=== PATIENT | female | born 1940 | race Caucasian/White ===

== ENCOUNTER → 2020-09-01 15:28 | Outpatient (CLI) | payer MEDICARE, MEDICAID, SELFPAY | PROVIDERS: Visit Provider Nurse Practitioner Family | DX: R00.0 Tachycardia, unspecified (principal); R35.0 Frequency of micturition | CPT/HCPCS: 87086; 87088; 87186 ==

== ENCOUNTER → 2020-09-16 14:53 | Outpatient (CLI) | payer MEDICARE, MEDICAID, SELFPAY ==
--- NOTE | 2020-09-16 14:59 | CA_ITS ---
APPROVED REPORT EXAM: Comprehensive 2D, Doppler, and color-flow Echocardiogram [employer] Of [employer]: Diamond Saab CRT Ht: 5 ft 3 in Wt: 170lbs BSA: 1.80 BP: 146/88 mmHg Indications: Cancer, pre chemo. Pt has had chemo previously. SOB, fatigue, limited images due to pain, order changed to a limited echo. 2D Dimensions LVOT 1.61 cm (M/F) 1.5-2.5 M-Mode Dimensions RVDd 3.57 cm (0.9-2.6) LA Diam 4.23 cm (1.9-4.0) LVDd 4.04 cm (3.5-5.7) Ao Diam 3.59 cm (2.0-3.7) LVDs 2.87 cm (3.5-5.7) IVSd 1.07 cm (0.6-1.1) PWd 0.83 cm (0.6-1.1) EF (Teich) 56.20% FS 29.00% EDV (Teich) 71.70 mL ESV (Teich) 31.40 mL Pulmonary Valve PV Peak Velocity 99.00 (50-150 cm/s) Tricuspid Valve TR P. Velocity 147.00 cm/s RAP Estimate 10.00 mmHg RVSP 18.70 mmHg Conclusion 1. Limited echocardiogram was performed to evaluate left ventricular systolic function, technically difficult study endocardial surfaces are poorly visualized. 2. Likely normal left ventricular size and function, visually estimated ejection fraction 55% with no regional wall motion abnormality. 3. No significant pericardial effusion noted Electronically signed by : Leander Kelly, 09/20/2020 05:49:33
== END ==
PROVIDERS: PCP Nurse Practitioner Family; Visit Provider Obstetrics & Gynecology Gynecologic Oncology
DX: C76.3 Malignant neoplasm of pelvis (principal); Z51.11 Encounter for antineoplastic chemotherapy
CPT/HCPCS: 93308

== ENCOUNTER → 2020-10-03 12:35 | Outpatient (CLI) | payer MEDICARE, MEDICAID, SELFPAY ==
[2020-10-03 13:29] LABS: Basophils % 0.3 % (0.1-2.0); Eosinophils % 0.6 % (0.1-12.0); Hematocrit 44.5 % (37.0-47.0); Hemoglobin 14.8 g/dL (12.2-16.2); Lymphocytes # 1.3 K/mm3 (0.7-4.5); Lymphocytes % 20.2 % (10-50); Mean Corpuscular HGB Conc 33.3 g/dL (31.8-35.4); Mean Corpuscular Volume 87.1 fl (81-99); Mean Platelet Volume 7.9 fl (7.4-10.4); Monocytes # 0.1 K/mm3 (0.1-1.0); Monocytes % 2.2 % (1.7-9.3); Neutrophils % 76.7 % (37.0-80.0); Platelet Count 165 K/mm3 (142-424); Red Blood Count 5.11 M/mm3 (4.20-5.40); Red Cell Distribution Width 13.7 % (11.5-17.5); White Blood Count 6.6 K/mm3 (4.8-10.8)
[2020-10-03 13:50] LABS: Alanine Aminotransferase 20 U/L (12-78); Albumin Level 4.5 g/dl (3.5-5.0); Albumin/Globulin Ratio 1.3 (1.1-1.8); Alkaline Phosphatase 88 U/L (38-126); Anion Gap 16.3 mEq/L (5-15); Aspartate Amino Transferase 27 U/L (14-36); Bilirubin,Total 0.7 mg/dl (0.2-1.3); Blood Urea Nitrogen 12 mg/dl (7-17); Calcium 9.8 mg/dl (8.4-10.2); Carbon Dioxide 26 mmol/L (22.0-30.0); Chloride 103 mmol/L (98-107); Estimated Glomerular Filt Rate 69 ml/min (>60); GFR (African American) 84 ML/MIN (>60); Globulin 3.4 g/dL (1.3-3.2); Glucose 136 mg/dl (74-100); Potassium 4.3 mmoL/L (3.5-5.1); Sodium 141 mmol/L (136-145); Total Protein,Serum 7.9 g/dl (6.3-8.2)
== END ==
PROVIDERS: PCP Nurse Practitioner Family; Visit Provider Obstetrics & Gynecology Gynecologic Oncology
DX: C76.3 Malignant neoplasm of pelvis (principal)
CPT/HCPCS: 36415; 80053; 85025

== ENCOUNTER → 2020-10-10 11:26 | Outpatient (CLI) | payer MEDICARE, MEDICAID, SELFPAY ==
[2020-10-10 12:21] LABS: Basophils % 0.5 % (0.1-2.0); Eosinophils % 0.5 % (0.1-12.0); Hematocrit 44.8 % (37.0-47.0); Hemoglobin 14.8 g/dL (12.2-16.2); Lymphocytes # 1.3 K/mm3 (0.7-4.5); Lymphocytes % 35.1 % (10-50); Mean Corpuscular Hemoglobin 29.2 pg (27.0-31.2); Mean Corpuscular Volume 88.5 fl (81-99); Mean Platelet Volume 8.4 fl (7.4-10.4); Monocytes # 0.3 K/mm3 (0.1-1.0); Monocytes % 7.2 % (1.7-9.3); Neutrophils # 2.1 K/mm3 (1.8-7.8); Neutrophils % 56.6 % (37.0-80.0); Platelet Count 136 K/mm3 (142-424); Red Blood Count 5.06 M/mm3 (4.20-5.40); White Blood Count 3.8 K/mm3 (4.8-10.8)
[2020-10-10 13:39] LABS: Chloride 105 mmol/L (98-107); Sodium 141 mmol/L (136-145)
[2020-10-10 13:40] LABS: Potassium 4.4 mmoL/L (3.5-5.1)
[2020-10-10 13:42] LABS: Alanine Aminotransferase 15 U/L (12-78); Albumin Level 4.6 g/dl (3.5-5.0); Albumin/Globulin Ratio 1.4 (1.1-1.8); Alkaline Phosphatase 95 U/L (38-126); Anion Gap 16.4 mEq/L (5-15); Aspartate Amino Transferase 27 U/L (14-36); Bilirubin,Total 0.6 mg/dl (0.2-1.3); Blood Urea Nitrogen 11 mg/dl (7-17); Calcium 9.6 mg/dl (8.4-10.2); Carbon Dioxide 24 mmol/L (22.0-30.0); Estimated Glomerular Filt Rate 69 ml/min (>60); GFR (African American) 84 ML/MIN (>60); Globulin 3.4 g/dL (1.3-3.2); Glucose 112 mg/dl (74-100)
== END ==
PROVIDERS: Visit Provider Obstetrics & Gynecology Gynecologic Oncology
DX: C76.3 Malignant neoplasm of pelvis (principal)
CPT/HCPCS: 36415; 80053; 85025

== ENCOUNTER → 2020-10-18 15:48 | Outpatient (CLI) | payer MEDICARE, MEDICAID, SELFPAY ==
[2020-10-18 19:45] LABS: Hemoglobin A1C 5.8 % (4.0-6.0)
== END ==
PROVIDERS: Nurse Practitioner Family; Visit Provider Physician Assistant
DX: R73.09 Other abnormal glucose (principal)
CPT/HCPCS: 36415; 83036

== ENCOUNTER 2020-10-20 11:40 | Outpatient (CLI) | payer MEDICARE, MEDICAID, SELFPAY ==
[2020-10-20] VITALS (11 sets, daily range): BP systolic 130–149; BP diastolic 45–61; PULSE 70–78; RESP 18–20; TEMP 36.9; O2SAT 97–98; BMI 28.1
[2020-10-20 12:15] LABS: Basophils % 0.4 % (0.1-2.0); Eosinophils % 0.5 % (0.1-12.0); Hematocrit 42.9 % (37.0-47.0); Hemoglobin 14.4 g/dL (12.2-16.2); Lymphocytes # 1.2 K/mm3 (0.7-4.5); Lymphocytes % 24.6 % (10-50); Mean Corpuscular HGB Conc 33.7 g/dL (31.8-35.4); Mean Platelet Volume 8.3 fl (7.4-10.4); Monocytes # 0.4 K/mm3 (0.1-1.0); Monocytes % 8.6 % (1.7-9.3); Neutrophils # 3.3 K/mm3 (1.8-7.8); Platelet Count 279 K/mm3 (142-424); Red Blood Count 4.82 M/mm3 (4.20-5.40); Red Cell Distribution Width 15.6 % (11.5-17.5)
[2020-10-20 12:21] LABS: Chloride 106 mmol/L (98-107); Sodium 143 mmol/L (136-145)
[2020-10-20 12:22] LABS: Potassium 4.2 mmoL/L (3.5-5.1)
[2020-10-20 12:24] LABS: Alanine Aminotransferase 21 U/L (12-78); Alkaline Phosphatase 85 U/L (38-126); Anion Gap 12.2 mEq/L (5-15); Aspartate Amino Transferase 31 U/L (14-36); Bilirubin,Total 0.5 mg/dl (0.2-1.3); Blood Urea Nitrogen 11 mg/dl (7-17); Carbon Dioxide 29 mmol/L (22.0-30.0); Creatinine Clearance Estimated 53 mL/min (50-200); Estimated Glomerular Filt Rate 54 ml/min (>60); GFR (African American) 65 ML/MIN (>60)
[2020-10-20 12:25] LABS: Albumin Level 4.5 g/dl (3.5-5.0); Albumin/Globulin Ratio 1.2 (1.1-1.8); Calcium 9.8 mg/dl (8.4-10.2); Globulin 3.7 g/dL (1.3-3.2); Glucose 125 mg/dl (74-100); Total Protein,Serum 8.2 g/dl (6.3-8.2)
== END 2020-10-20 16:25 | disposition home or self-care (01) ==
LOC: INF 11:44
PROVIDERS: Visit Provider Internal Medicine Medical Oncology
DX: Z51.11 Encounter for antineoplastic chemotherapy (principal); C56.9 Malignant neoplasm of unspecified ovary
CPT/HCPCS: 80053; 85025; 96413; 96415; 96417; J9045; Q0166; Q2050

== ENCOUNTER → 2020-11-21 08:37 | Outpatient (CLI) | payer MEDICARE, MEDICAID, SELFPAY ==
--- NOTE | 2020-11-21 08:44 | CT_ITS ---
PROCEDURE: CT CHEST W CON CLINCAL INDICATION: SOB Follow-up ovarian cancer HX of ovarian cancer 1-2 yrs ago No symptoms [place] COMPARISON: No exams were available for comparison TECHNIQUE: IV Contrast: 75ml Isovue 370 Axial images obtained with sagittal and coronal reformats. All CT scans at the facility use one or more dose reduction, viz: automated exposure control, ma/kV adjustment per patient size (including targeted exams where dose is matched to indication, i.e. head), or iterative reconstruction technique. FINDINGS: There are small bilateral thyroid nodules nonspecific less than 1 cm. No mediastinal or hilar mass or adenopathy. There is a small hiatal hernia with mild thickening of the GE junction nonspecific. There is a 4 mm noncalcified nodule in the right upper lobe image 28 series 4, 3 mm noncalcified nodule right upper lobe image 22 series 4, 3 mm noncalcified nodule right upper lobe image 38, 3 mm noncalcified nodule right lower lobe image 52. There is some pleural parenchymal thickening in the right lung base posterior laterally with trace loculated right-sided pleural effusion. There is a calcified granuloma in the left lower lobe and a 3 mm noncalcified nodule left lower lobe image 44. Parenchymal opacity is present in the left lower lobe posterior laterally subpleural at 6 mm. 3 mm noncalcified nodule left upper lobe image 26. No lobar consolidation or collapse. No central endobronchial lesions. No acute bony findings. IMPRESSION: There are scattered small bilateral pulmonary nodular opacities. These are nonspecific and could be infectious/inflammatory or neoplastic. Consider 3 to six-month follow-up to confirm stability in this patient with history of ovarian cancer as metastatic disease is not excluded. There is mild pleural parenchymal thickening with trace loculated effusion in the right lung base posterior laterally. Dictated by: Juan Carlos Giraldo MD 11/22/2020 11:16 Juan Carlos Giraldo MD in [facility] 11/22/2020 11:16
--- NOTE | 2020-11-21 08:45 | CT_ITS ---
PROCEDURE: CT ABDOMEN PELVIS W CON CLINICAL INDICATION: OVARIAN CANCER Hx of ovarian cancer 1-2 years ago No symptoms at this time [facility] COMPARISON: No exams were available for comparison TECHNIQUE: IV Contrast: 75ML Isovue 370 Oral Contrast 450ml Redicat Axial images obtained with sagittal and coronal reformats. All CT scans at the facility use one or more dose reduction, viz: automated exposure control, ma/kV adjustment per patient size (including targeted exams where dose is matched to indication, i.e. head), or iterative reconstruction technique. FINDINGS: There are no previous exams available for comparison. There is an area of coarse calcification in the right hepatic lobe laterally and posteriorly. The liver has an otherwise unremarkable appearance. The spleen, adrenal glands, and pancreas have an unremarkable appearance. There is a small hiatal hernia. Cortical scarring involves both kidneys right more extensive than left with small bilateral renal cortical cyst. No hydronephrosis. There are scattered soft tissue nodules within the mesenteries consistent with metastatic disease. Soft tissue mass noted in the right upper quadrant medial to the hepatic flexure as well as superior to the hepatic flexure measuring 3 cm. Soft tissue mass noted in the left upper quadrant anterior to the transverse colon. This area measures 4.5 x 1.7 cm. These are consistent with omental metastatic foci. There is a large complex cystic pelvic mass measuring up to 12 cm AP, 12 cm transverse, and 15 cm cephalad caudad. This originates in the lower pelvic region centrally and extends superiorly and toward the right. The upper portion of the mass is at the level of the umbilicus. There are septations within this mass some of which are slightly thickened. This is suspicious for cystadenocarcinoma of the ovary. No ascites is evident. There is diffuse osteopenia. No focal bony lytic or blastic lesions are identified. IMPRESSION: 1. 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 2. Coarse calcification in the right hepatic lobe possibly due to a treated metastatic focus. Comparison with old exams needed. Dictated by: Juan Carlos Giraldo MD 11/22/2020 11:25 Juan Carlos Giraldo MD in [facility] 11/22/2020 11:25
[2020-11-21 09:05] LABS: Basophils # 0.1 K/mm3 (0-0.2); Eosinophils % 0.5 % (0.1-12.0); Hematocrit 42.6 % (37.0-47.0); Lymphocytes # 1.4 K/mm3 (0.7-4.5); Lymphocytes % 23.9 % (10-50); Mean Corpuscular HGB Conc 32.9 g/dL (31.8-35.4); Mean Corpuscular Hemoglobin 29.9 pg (27.0-31.2); Mean Corpuscular Volume 90.7 fl (81-99); Mean Platelet Volume 8.2 fl (7.4-10.4); Monocytes # 0.6 K/mm3 (0.1-1.0); Monocytes % 9.8 % (1.7-9.3); Neutrophils # 3.7 K/mm3 (1.8-7.8); Neutrophils % 64.8 % (37.0-80.0); Platelet Count 261 K/mm3 (142-424); Red Blood Count 4.69 M/mm3 (4.20-5.40); Red Cell Distribution Width 17.2 % (11.5-17.5); White Blood Count 5.8 K/mm3 (4.8-10.8)
[2020-11-21 09:13] LABS: Chloride 108 mmol/L (98-107); Potassium 4.9 mmoL/L (3.5-5.1); Sodium 143 mmol/L (136-145)
[2020-11-21 09:15] LABS: Alanine Aminotransferase 17 U/L (12-78); Aspartate Amino Transferase 31 U/L (14-36); Blood Urea Nitrogen 11 mg/dl (7-17); Estimated Glomerular Filt Rate 61 ml/min (>60); GFR (African American) 73 ML/MIN (>60)
[2020-11-21 09:16] LABS: Albumin Level 4.7 g/dl (3.5-5.0); Albumin/Globulin Ratio 1.2 (1.1-1.8); Alkaline Phosphatase 91 U/L (38-126); Anion Gap 11.9 mEq/L (5-15); Bilirubin,Total 0.6 mg/dl (0.2-1.3); Calcium 10.1 mg/dl (8.4-10.2); Carbon Dioxide 28 mmol/L (22.0-30.0); Globulin 3.9 g/dL (1.3-3.2); Glucose 136 mg/dl (74-100); Total Protein,Serum 8.6 g/dl (6.3-8.2)
== END ==
PROVIDERS: PCP Nurse Practitioner Family; Visit Provider Internal Medicine Medical Oncology
DX: C56.2 Malignant neoplasm of left ovary (principal); C76.3 Malignant neoplasm of pelvis; R06.02 Shortness of breath
CPT/HCPCS: 36415; 71260; 74177; 80053; 82565; 84520; 85025; Q9967

== ENCOUNTER 2020-12-01 10:16 | Outpatient (CLI) | payer MEDICARE, MEDICAID, SELFPAY ==
[2020-12-01] VITALS (9 sets, daily range): BP systolic 125–145; BP diastolic 47–66; PULSE 68–75; RESP 18; TEMP 36.9; O2SAT 97–98; BMI 28.1
[2020-12-01 11:06] LABS: Basophils % 0.4 % (0.1-2.0); Eosinophils # 0.1 K/mm3 (0.0-0.4); Eosinophils % 1.3 % (0.1-12.0); Hematocrit 39.1 % (37.0-47.0); Hemoglobin 12.8 g/dL (12.2-16.2); Lymphocytes % 17.7 % (10-50); Mean Corpuscular HGB Conc 32.8 g/dL (31.8-35.4); Mean Corpuscular Hemoglobin 30.1 pg (27.0-31.2); Mean Corpuscular Volume 91.9 fl (81-99); Mean Platelet Volume 7.6 fl (7.4-10.4); Monocytes # 0.6 K/mm3 (0.1-1.0); Monocytes % 9.7 % (1.7-9.3); Neutrophils # 4.1 K/mm3 (1.8-7.8); Neutrophils % 70.9 % (37.0-80.0); Platelet Count 172 K/mm3 (142-424); Red Blood Count 4.25 M/mm3 (4.20-5.40); White Blood Count 5.7 K/mm3 (4.8-10.8)
[2020-12-01 11:16] LABS: Chloride 108 mmol/L (98-107)
[2020-12-01 11:17] LABS: Potassium 4.1 mmoL/L (3.5-5.1); Sodium 143 mmol/L (136-145)
[2020-12-01 11:19] LABS: Alanine Aminotransferase 19 U/L (12-78); Alkaline Phosphatase 72 U/L (38-126); Aspartate Amino Transferase 28 U/L (14-36); Bilirubin,Total 0.4 mg/dl (0.2-1.3); Blood Urea Nitrogen 12 mg/dl (7-17); Creatinine Clearance Estimated 53 mL/min (50-200); Estimated Glomerular Filt Rate 61 ml/min (>60); GFR (African American) 73 ML/MIN (>60)
[2020-12-01 11:20] LABS: Albumin Level 4.4 g/dl (3.5-5.0); Albumin/Globulin Ratio 1.2 (1.1-1.8); Anion Gap 12.1 mEq/L (5-15); Calcium 9.8 mg/dl (8.4-10.2); Carbon Dioxide 27 mmol/L (22.0-30.0); Globulin 3.6 g/dL (1.3-3.2); Glucose 124 mg/dl (74-100)
== END 2020-12-01 14:55 | disposition home or self-care (01) ==
LOC: INF 10:16
PROVIDERS: Visit Provider Internal Medicine Medical Oncology
DX: Z51.11 Encounter for antineoplastic chemotherapy (principal); C56.9 Malignant neoplasm of unspecified ovary
CPT/HCPCS: 80053; 85025; 96366; 96367; 96413; 96415; 96417; J8501; J9045; Q0166; Q2050

== ENCOUNTER → 2020-12-27 10:09 | Outpatient (CLI) | payer MEDICARE, MEDICAID, SELFPAY ==
--- NOTE | 2020-12-27 10:10 | MM_ITS ---
PROCEDURE: MM DIG SCREENING MAMM BI W/CAD Digital Breast Tomosynthesis Included CLINICAL INDICATION: screening There is a history of breast cancer patient's mother and sister. COMPARISON: MG Screening-Bilateral Mammography from 05/04/2019 outside films. MG Screening-Bilateral Mammography from 05/04/2019 MG Screening-Bilateral Mammography from 05/04/2019 TECHNIQUE: Standard CC and MLO images and 3D Tomosynthesis was obtained. R2 CAD reviewed. FINDINGS: Prominent diffuse somewhat heterogenic fibroglandular densities are seen throughout both breasts. There is scattered arterial calcification in each breast. CAD markings were re-examined and all appear to be secondary to vascular calcifications. There are few scattered benign-appearing microcalcifications in the as well. There is no suspicious lesion and no suspicious microcalcifications. IMPRESSION: Diffusely dense parenchymal pattern with no suspicious lesions seen BI-RAD Category: 2 Benign Finding(s) FOLLOW-UP: 1YR 1 Year Follow-up (A letter has been sent to the patient regarding results of the study.) Dictated by: Dr. Geovanny Harmon MD 01/11/2021 08:30 Dr. Geovanny Harmon MD in [facility] 01/11/2021 08:30
== END ==
PROVIDERS: PCP Nurse Practitioner Family; Visit Provider Nurse Practitioner Family
DX: Z12.31 Encounter for screening mammogram for malignant neoplasm of breast (principal)
CPT/HCPCS: 77063; 77067

== ENCOUNTER 2020-12-29 09:58 | Outpatient (CLI) | payer MEDICARE, MEDICAID, SELFPAY ==
[2020-12-29] VITALS (7 sets, daily range): BP systolic 140–164; BP diastolic 68–88; PULSE 73–79; RESP 18; TEMP 36.4; O2SAT 98–100; BMI 28.3
[2020-12-29 10:29] LABS: Chloride 107 mmol/L (98-107); Potassium 4.2 mmoL/L (3.5-5.1); Sodium 142 mmol/L (136-145)
[2020-12-29 10:31] LABS: Alanine Aminotransferase 15 U/L (12-78); Alkaline Phosphatase 71 U/L (38-126); Anion Gap 9.2 mEq/L (5-15); Aspartate Amino Transferase 27 U/L (14-36); Bilirubin,Total 0.6 mg/dl (0.2-1.3); Blood Urea Nitrogen 11 mg/dl (7-17); Carbon Dioxide 30 mmol/L (22.0-30.0); Creatinine Clearance Estimated 52 mL/min (50-200); Estimated Glomerular Filt Rate 53 ml/min (>60); GFR (African American) 65 ML/MIN (>60)
[2020-12-29 10:32] LABS: Albumin Level 4.3 g/dl (3.5-5.0); Albumin/Globulin Ratio 1.4 (1.1-1.8); Calcium 9.1 mg/dl (8.4-10.2); Glucose 115 mg/dl (74-100); Total Protein,Serum 7.3 g/dl (6.3-8.2)
[2020-12-29 10:33] LABS: Basophils % 0.5 % (0.1-2.0); Eosinophils % 0.6 % (0.1-12.0); Hematocrit 36.4 % (37.0-47.0); Hemoglobin 11.9 g/dL (12.2-16.2); Lymphocytes # 0.9 K/mm3 (0.7-4.5); Lymphocytes % 26.4 % (10-50); Mean Corpuscular HGB Conc 32.7 g/dL (31.8-35.4); Mean Corpuscular Hemoglobin 30.8 pg (27.0-31.2); Mean Corpuscular Volume 94.3 fl (81-99); Mean Platelet Volume 8.8 fl (7.4-10.4); Monocytes # 0.4 K/mm3 (0.1-1.0); Monocytes % 12.1 % (1.7-9.3); Neutrophils # 2.1 K/mm3 (1.8-7.8); Neutrophils % 60.3 % (37.0-80.0); Platelet Count 155 K/mm3 (142-424); Red Blood Count 3.86 M/mm3 (4.20-5.40); White Blood Count 3.4 K/mm3 (4.8-10.8)
[2020-12-29 11:23] LABS: Microscopic, Urine URINE MICROSCOPIC (MICROSCOPIC)
[2020-12-29 11:32] LABS: Appearance,Urine CLEAR (Clear); Bilirubin,Urine Negative (Negative); Blood, Urine Negative (Negative); Color,Urine YELLOW (Yellow); Glucose,Urine (UA) Negative (Negative); Ketones,Urine Negative (Negative); Leukocyte Esterase,Urine Negative (Negative); Nitrate,Urine Negative (Negative); Protein,Urine Negative (Negative); Urobilinogen,Urine 0.2 EU/dl (0.2)
[2020-12-29 11:43] LABS: WBC,Urine Occasional #/hpf (0-3)
== END 2020-12-29 14:40 | disposition home or self-care (01) ==
LOC: INF 09:58
PROVIDERS: Visit Provider Internal Medicine Medical Oncology
DX: Z51.11 Encounter for antineoplastic chemotherapy (principal); C56.9 Malignant neoplasm of unspecified ovary
CPT/HCPCS: 80053; 81001; 85025; 96367; 96413; 96415; 96417; J9045; Q0166; Q2050

== ENCOUNTER 2021-01-27 09:25 | Outpatient (CLI) | payer MEDICARE, MEDICAID, SELFPAY ==
[2021-01-27] VITALS (8 sets, daily range): BP systolic 140–164; BP diastolic 57–78; PULSE 72–78; RESP 18; TEMP 36.7; O2SAT 97–98; BMI 28.7
[2021-01-27 09:42] LABS: Basophils % 0.5 % (0.1-2.0); Eosinophils % 0.5 % (0.1-12.0); Hematocrit 33.9 % (37.0-47.0); Hemoglobin 11.4 g/dL (12.2-16.2); Lymphocytes % 30.4 % (10-50); Mean Corpuscular HGB Conc 33.6 g/dL (31.8-35.4); Mean Corpuscular Hemoglobin 31.9 pg (27.0-31.2); Mean Corpuscular Volume 94.9 fl (81-99); Mean Platelet Volume 9.2 fl (7.4-10.4); Monocytes # 0.5 K/mm3 (0.1-1.0); Monocytes % 13.7 % (1.7-9.3); Neutrophils # 1.9 K/mm3 (1.8-7.8); Neutrophils % 54.9 % (37.0-80.0); Platelet Count 206 K/mm3 (142-424); Red Blood Count 3.57 M/mm3 (4.20-5.40); Red Cell Distribution Width 16.3 % (11.5-17.5); White Blood Count 3.4 K/mm3 (4.8-10.8)
[2021-01-27 09:48] LABS: Chloride 106 mmol/L (98-107); Sodium 141 mmol/L (136-145)
[2021-01-27 09:49] LABS: Potassium 4.3 mmoL/L (3.5-5.1)
[2021-01-27 09:51] LABS: Alanine Aminotransferase 11 U/L (12-78); Albumin Level 4.3 g/dl (3.5-5.0); Albumin/Globulin Ratio 1.4 (1.1-1.8); Alkaline Phosphatase 94 U/L (38-126); Anion Gap 11.3 mEq/L (5-15); Aspartate Amino Transferase 25 U/L (14-36); Bilirubin,Total 0.5 mg/dl (0.2-1.3); Blood Urea Nitrogen 12 mg/dl (7-17); Carbon Dioxide 28 mmol/L (22.0-30.0); Creatinine Clearance Estimated 48 mL/min (50-200); Estimated Glomerular Filt Rate 48 ml/min (>60); GFR (African American) 58 ML/MIN (>60); Globulin 3.1 g/dL (1.3-3.2); Total Protein,Serum 7.4 g/dl (6.3-8.2)
[2021-01-27 09:52] LABS: Calcium 9.5 mg/dl (8.4-10.2); Glucose 134 mg/dl (74-100)
[2021-01-27 10:48] LABS: Magnesium 1.9 mg/dl (1.6-2.3)
== END 2021-01-27 14:18 | disposition home or self-care (01) ==
LOC: INF 09:25
PROVIDERS: Visit Provider Internal Medicine Medical Oncology
DX: Z51.11 Encounter for antineoplastic chemotherapy (principal); C56.9 Malignant neoplasm of unspecified ovary
CPT/HCPCS: 80053; 83735; 85025; 96413; 96415; 96417; J9045; Q0166; Q2050

== ENCOUNTER → 2021-03-07 08:59 | Outpatient (CLI) | payer MEDICARE, MEDICAID, SELFPAY ==
--- NOTE | 2021-03-07 09:49 | CT_ITS ---
PROCEDURE: CT CHEST W CON CLINCAL INDICATION: ENDOMETRIAL CA Follow-up endometrial cancer COMPARISON: CT CT CHEST W CON from 11/21/2020 TECHNIQUE: IV Contrast: 75ml Isovue 370 Axial images obtained with sagittal and coronal reformats. All CT scans at the facility use one or more dose reduction, viz: automated exposure control, ma/kV adjustment per patient size (including targeted exams where dose is matched to indication, i.e. head), or iterative reconstruction technique. FINDINGS: HEART AND MEDIASTINAL STRUCTURES: No mediastinal or hilar mass or adenopathy. LUNGS AND PLEURAL SPACES: There are scattered areas of scarring. There are stable small bilateral nodular opacities some of which are calcified the largest in the superior aspect of the left lower lobe subpleural in nature not significantly changed at 5 mm. No effusions or infiltrates. The previously described small loculated effusion in the right lung base is no longer apparent. No new nodules evident. BONY STRUCTURES: Ankylosis of the thoracic spine. No bony destructive process UPPER ABDOMEN: Please see abdomen CT report performed on the same day. There is thickening of the distal esophagus nonspecific. There is a small subphrenic lymph node on the left which is decreased in size previously measuring 7 mm and now measuring 5 mm. ADDITIONAL FINDINGS: No other significant abnormalities. IMPRESSION: Overall stable CT appearance of the chest. No new pulmonary nodules. Loculated effusion previously described in the right lung base is no longer apparent. Dictated by: Juan Carlos Giraldo MD 03/08/2021 09:37 Juan Carlos Giraldo MD in [facility] 03/08/2021 09:37
--- NOTE | 2021-03-07 09:49 | CT_ITS ---
PROCEDURE: CT ABDOMEN PELVIS W CON CLINICAL INDICATION: ENDOMETRIAL CA COMPARISON: CT CT ABDOMEN/PELVIS W CONTRAST from 09/13/[address] ABDOMEN PELVIS W CON from 11/21/2020 TECHNIQUE: IV Contrast: 75ML Isovue 370 Oral Contrast None Axial images obtained with sagittal and coronal reformats. All CT scans at the facility use one or more dose reduction, viz: automated exposure control, ma/kV adjustment per patient size (including targeted exams where dose is matched to indication, i.e. head), or iterative reconstruction technique. FINDINGS: LOWER THORAX: Please see chest CT report performed on the same day ABDOMEN & PELVIS: Dystrophic calcification noted within the right hepatic lobe inferiorly segment 6 unchanged. No new liver lesions apparent. There has been a prior cholecystectomy. There is thickening of the GE junction which is nonspecific. The spleen, adrenal glands, and pancreas have an unremarkable appearance. There has been interval development of moderate to severe left-sided hydronephrosis and hydroureter. The distal ureter is compressed by the large cystic pelvic mass. No right hydronephrosis or hydroureter. No intestinal obstruction or free air. There is a large septated complex pelvic mass 16 x 15 x 10 cm previously 15 x 10 x 13 cm in the same imaging plane. The mass is epicentered in the lower central pelvic region extending superiorly and to the right with some compression of small-bowel loops in the right lower quadrant and compression upon the sigmoid colon in the pelvic region. The lower portion of the mass is compressing upon the urinary bladder and the left distal ureter resulting in moderate to severe left-sided hydronephrosis and hydroureter. Prior hysterectomy. No ascites. Numerous enhancing masses in the mesenteries are once again noted consistent with mesenteric carcinomatosis. The these areas appears slightly smaller from the previous exam for example, right upper quadrant mesenteric mass measures 2.3 x 2.1 cm previously 3 x 3 cm. Left upper quadrant mesenteric mass measures 4 by 1.3 cm previously 4.5 x 1.7 cm. Retroperitoneal adenopathy is once again noted not significantly changed. No acute bony findings. There are degenerative changes in the lumbar spine IMPRESSION: Enlarging complex cystic pelvic mass consistent with neoplasm now with left-sided hydronephrosis and hydroureter. There has been slight improvement in the mesenteric carcinomatosis. No change in the retroperitoneal adenopathy. Dictated by: Juan Carlos Giraldo MD 03/08/2021 10:26 Juan Carlos Giraldo MD in [facility] 03/08/2021 10:26
[2021-03-07 09:53] LABS: Basophils % 0.6 % (0.1-2.0); Eosinophils # 0.1 K/mm3 (0.0-0.4); Eosinophils % 1.1 % (0.1-12.0); Hematocrit 35.2 % (37.0-47.0); Hemoglobin 11.8 g/dL (12.2-16.2); Lymphocytes % 21.8 % (10-50); Mean Corpuscular HGB Conc 33.4 g/dL (31.8-35.4); Mean Corpuscular Hemoglobin 32.3 pg (27.0-31.2); Mean Corpuscular Volume 96.6 fl (81-99); Mean Platelet Volume 9.2 fl (7.4-10.4); Monocytes # 0.5 K/mm3 (0.1-1.0); Neutrophils # 3.2 K/mm3 (1.8-7.8); Neutrophils % 66.6 % (37.0-80.0); Platelet Count 158 K/mm3 (142-424); Red Blood Count 3.64 M/mm3 (4.20-5.40); Red Cell Distribution Width 15.9 % (11.5-17.5); White Blood Count 4.8 K/mm3 (4.8-10.8)
[2021-03-07 10:00] LABS: Chloride 107 mmol/L (98-107); Potassium 3.9 mmoL/L (3.5-5.1); Sodium 129 mmol/L (136-145)
[2021-03-07 10:03] LABS: Alanine Aminotransferase 11 U/L (12-78); Albumin Level 4.4 g/dl (3.5-5.0); Albumin/Globulin Ratio 1.3 (1.1-1.8); Alkaline Phosphatase 89 U/L (38-126); Anion Gap -1.1 mEq/L (5-15); Aspartate Amino Transferase 26 U/L (14-36); Bilirubin,Total 0.4 mg/dl (0.2-1.3); Blood Urea Nitrogen 13 mg/dl (7-17); Calcium 8.9 mg/dl (8.4-10.2); Carbon Dioxide 27 mmol/L (22.0-30.0); Estimated Glomerular Filt Rate 48 ml/min (>60); GFR (African American) 58 ML/MIN (>60); Globulin 3.3 g/dL (1.3-3.2); Glucose 112 mg/dl (74-100); Total Protein,Serum 7.7 g/dl (6.3-8.2)
[2021-03-08 08:21] LABS: Cancer Antigen (CA) 125 16.2 U/mL (0.0-38.1)
== END ==
PROVIDERS: PCP Nurse Practitioner Family; Visit Provider Internal Medicine Medical Oncology
DX: C54.1 Malignant neoplasm of endometrium (principal); C57.7 Malignant neoplasm of other specified female genital organs
CPT/HCPCS: 36415; 71260; 74177; 80053; 85025; 86316; Q9967

== ENCOUNTER 2021-03-09 10:57 | Outpatient (CLI) | payer MEDICARE, MEDICAID, SELFPAY ==
[2021-03-09] VITALS (12 sets, daily range): BP systolic 133–172; BP diastolic 57–100; PULSE 73–80; RESP 16–18; TEMP 36.7; O2SAT 98
== END 2021-03-09 15:10 | disposition home or self-care (01) ==
LOC: INF 10:57
PROVIDERS: Visit Provider Internal Medicine Medical Oncology
DX: C54.1 Malignant neoplasm of endometrium (principal); Z51.11 Encounter for antineoplastic chemotherapy
CPT/HCPCS: 96413; 96415; 96417; J9045; Q0166; Q2050

== ENCOUNTER → 2021-05-01 08:36 | Outpatient (CLI) | payer MEDICARE, MEDICAID, SELFPAY ==
--- NOTE | 2021-05-01 08:44 | CT_ITS ---
PROCEDURE: CT CHEST W CON CLINCAL INDICATION: ENDOMETRIAL CANCER Follow up No on chemo at this time No new symptoms COMPARISON: CT CT CHEST W CON from 03/07/2021 TECHNIQUE: IV Contrast: 75ml Isovue 370 Axial images obtained with sagittal and coronal reformats. All CT scans at the facility use one or more dose reduction, viz: automated exposure control, ma/kV adjustment per patient size (including targeted exams where dose is matched to indication, i.e. head), or iterative reconstruction technique. FINDINGS: HEART AND MEDIASTINAL STRUCTURES: Unremarkable. LUNGS AND PLEURAL SPACES: 3 mm nodule right upper lobe image 38 unchanged. Stable 5 mm nodule left lower lobe subpleural region image 39. Stable 3 mm nodule left upper lobe image 28. No new nodules apparent. No effusions or infiltrates. BONY STRUCTURES: No acute bony abnormalities apparent. UPPER ABDOMEN: See abdomen report ADDITIONAL FINDINGS: No other significant abnormalities. IMPRESSION: Stable CT appearance of the chest. No change small bilateral pulmonary nodules Dictated by: Juan Carlos Giraldo MD 05/02/2021 10:01 Juan Carlos Giraldo MD in [facility] 05/02/2021 10:01
--- NOTE | 2021-05-01 08:44 | CT_ITS ---
PROCEDURE: CT ABDOMEN PELVIS W CON CLINICAL INDICATION: ENDOMETRIAL CANCER Follow up Not on chemo at this time No new symptoms COMPARISON: CT CT ABDOMEN/PELVIS W CONTRAST from 09/13/[address] ABDOMEN PELVIS W CON from 03/07/2021 TECHNIQUE: IV Contrast: 75ML Isovue 370 Oral Contrast None Axial images obtained with sagittal and coronal reformats. All CT scans at the facility use one or more dose reduction, viz: automated exposure control, ma/kV adjustment per patient size (including targeted exams where dose is matched to indication, i.e. head), or iterative reconstruction technique. FINDINGS: Focal area of dystrophic calcification right hepatic lobe unchanged. The liver has an otherwise unremarkable appearance. The spleen, adrenal glands, and pancreas have an unremarkable appearance. No renal or ureteral calculi. There is right renal cortical scarring and there are left parapelvic renal cysts and left renal cortical cyst at 2 cm. There is a soft tissue mass posterior to the pancreatic head at 3.5 cm previously 2.6 cm. This is felt to be related to an enlarged portal lymph node. Retroperitoneal adenopathy is present and has progressed. There is a an aortocaval node which measures 1.7 cm previously 0.7 cm. Soft tissue mass is present along the antrum/pyloric region of the stomach at 5 x 3 cm previously 4.4 by 3 cm. This is causing narrowing of the pylorus. Small soft tissue masses are present along the mesenteries anteriorly in the right upper quadrant left upper quadrant mesenteric mass also noted. The mesenteric mass is are slightly more bulky. Large septated cystic pelvic mass is once again noted. Inferiorly the mass begins at the vaginal cuff region in the left paracentral area and extends cephalad centrally and to the right within the right lower quadrant area. Overall the mass appears slightly smaller compared to the previous exam. Septations are present within this lesion and there is some thickening of the wall posteriorly. Definite dimensions are difficult to measure due to the loculations and obliquity of the lesion. Cephalad caudad extent is approximately 15 cm with AP dimension at 11 cm in maximum transverse dimension at approximately 13 cm previously 16 x 11 by 13 cm. The inferior loculated component also appears somewhat smaller. Previously noted left-sided hydronephrosis and hydroureter somewhat improved with decreased compression upon the left ureter distally secondary to decrease in size of the inferior cystic component. IMPRESSION: There has been a mixed response. The retroperitoneal adenopathy and portal adenopathy has slightly increased. There is a mass at the antrum/pyloric region of the stomach which may be slightly larger. Mesenteric masses also appears slightly larger. The pelvic mass itself has slightly decreased in size with decrease in the size of the cystic component inferiorly. Persistent but improved left-sided hydronephrosis and hydroureter. Dictated by: Juan Carlos Giraldo MD 05/02/2021 10:23 Juan Carlos Giraldo MD in [facility] 05/02/2021 10:23
[2021-05-01 09:34] LABS: Blood Urea Nitrogen 16 mg/dl (7-17); Estimated Glomerular Filt Rate 60 ml/min (>60); GFR (African American) 73 ML/MIN (>60)
== END ==
PROVIDERS: PCP Nurse Practitioner Family; Visit Provider Internal Medicine Medical Oncology
DX: C54.1 Malignant neoplasm of endometrium (principal)
CPT/HCPCS: 71260; 74177; 82565; 84520; Q9967

== ENCOUNTER 2021-05-25 10:32 | Outpatient (CLI) | payer MEDICARE, MEDICAID, SELFPAY ==
[2021-05-25 10:47] VITALS: BMI 27.6
[2021-05-25 11:20] LABS: Basophils % 0.4 % (0.1-2.0); Eosinophils # 0.1 K/mm3 (0.0-0.4); Eosinophils % 1.5 % (0.1-12.0); Hematocrit 42.1 % (37.0-47.0); Hemoglobin 13.9 g/dL (12.2-16.2); Lymphocytes # 1.1 K/mm3 (0.7-4.5); Lymphocytes % 16.1 % (10-50); Mean Corpuscular HGB Conc 33.1 g/dL (31.8-35.4); Mean Corpuscular Hemoglobin 31.6 pg (27.0-31.2); Mean Corpuscular Volume 95.5 fl (81-99); Mean Platelet Volume 7.4 fl (7.4-10.4); Monocytes # 0.5 K/mm3 (0.1-1.0); Monocytes % 8.1 % (1.7-9.3); Neutrophils # 4.9 K/mm3 (1.8-7.8); Neutrophils % 73.8 % (37.0-80.0); Platelet Count 151 K/mm3 (142-424); Red Blood Count 4.41 M/mm3 (4.20-5.40); Red Cell Distribution Width 13.8 % (11.5-17.5); White Blood Count 6.6 K/mm3 (4.8-10.8)
[2021-05-25 11:25] LABS: Alanine Aminotransferase 16 U/L (12-78); Albumin Level 4.4 g/dl (3.5-5.0); Albumin/Globulin Ratio 1.2 (1.1-1.8); Alkaline Phosphatase 73 U/L (38-126); Anion Gap 14.8 mEq/L (5-15); Aspartate Amino Transferase 31 U/L (14-36); Bilirubin,Total 0.5 mg/dl (0.2-1.3); Blood Urea Nitrogen 14 mg/dl (7-17); Calcium 9.5 mg/dl (8.4-10.2); Carbon Dioxide 29 mmol/L (22.0-30.0); Chloride 104 mmol/L (98-107); Creatinine Clearance Estimated 51 mL/min (50-200); Estimated Glomerular Filt Rate 60 ml/min (>60); GFR (African American) 73 ML/MIN (>60); Globulin 3.8 g/dL (1.3-3.2); Glucose 117 mg/dl (74-100); Potassium 4.8 mmoL/L (3.5-5.1); Sodium 143 mmol/L (136-145); Total Protein,Serum 8.2 g/dl (6.3-8.2)
[2021-05-25 11:36] VITALS: BP 138/86; PULSE 77; RESP 18; TEMP 36.6; O2SAT 99
[2021-05-25 12:07] VITALS: BP 155/73; PULSE 71; RESP 18; O2SAT 99
[2021-05-25 12:37] VITALS: BP 142/81; PULSE 78; RESP 18; O2SAT 98
[2021-05-25 13:05] VITALS: BP 141/70; PULSE 76; RESP 18; O2SAT 98
== END 2021-05-25 13:10 | disposition home or self-care (01) ==
LOC: INF 10:34
PROVIDERS: PCP Nurse Practitioner Family; Visit Provider Internal Medicine Medical Oncology
DX: Z51.11 Encounter for antineoplastic chemotherapy (principal); C54.1 Malignant neoplasm of endometrium
CPT/HCPCS: 80053; 85025; 96413; J9201; Q0166

== ENCOUNTER 2021-06-08 10:14 | Outpatient (CLI) | payer MEDICARE, MEDICAID, SELFPAY ==
[2021-06-08 10:35] VITALS: BMI 27.1
[2021-06-08 11:25] LABS: Basophils % 0.6 % (0.1-2.0); Eosinophils # 0.1 K/mm3 (0.0-0.4); Eosinophils % 1.3 % (0.1-12.0); Hematocrit 40.1 % (37.0-47.0); Hemoglobin 13.1 g/dL (12.2-16.2); Lymphocytes # 1.1 K/mm3 (0.7-4.5); Lymphocytes % 19.8 % (10-50); Mean Corpuscular HGB Conc 32.7 g/dL (31.8-35.4); Mean Corpuscular Hemoglobin 31.2 pg (27.0-31.2); Mean Corpuscular Volume 95.5 fl (81-99); Mean Platelet Volume 8.7 fl (7.4-10.4); Monocytes # 0.4 K/mm3 (0.1-1.0); Monocytes % 7.7 % (1.7-9.3); Neutrophils # 3.7 K/mm3 (1.8-7.8); Neutrophils % 70.6 % (37.0-80.0); Platelet Count 186 K/mm3 (142-424); Red Cell Distribution Width 14.7 % (11.5-17.5); White Blood Count 5.3 K/mm3 (4.8-10.8)
[2021-06-08 11:26] LABS: Chloride 105 mmol/L (98-107); Potassium 4.7 mmoL/L (3.5-5.1); Sodium 141 mmol/L (136-145)
[2021-06-08 11:28] LABS: Alanine Aminotransferase 19 U/L (12-78); Aspartate Amino Transferase 34 U/L (14-36); Blood Urea Nitrogen 12 mg/dl (7-17); Creatinine Clearance Estimated 50 mL/min (50-200); Estimated Glomerular Filt Rate 60 ml/min (>60); GFR (African American) 73 ML/MIN (>60)
[2021-06-08 11:29] LABS: Albumin Level 4.3 g/dl (3.5-5.0); Albumin/Globulin Ratio 1.2 (1.1-1.8); Alkaline Phosphatase 86 U/L (38-126); Anion Gap 14.7 mEq/L (5-15); Bilirubin,Total 0.3 mg/dl (0.2-1.3); Calcium 9.3 mg/dl (8.4-10.2); Carbon Dioxide 26 mmol/L (22.0-30.0); Globulin 3.6 g/dL (1.3-3.2); Glucose 109 mg/dl (74-100); Total Protein,Serum 7.9 g/dl (6.3-8.2)
[2021-06-08 11:41] VITALS: BP 147/62; PULSE 68; RESP 17; TEMP 36.6; O2SAT 97
[2021-06-08 12:18] VITALS: BP 159/69; PULSE 61
[2021-06-08 12:30] VITALS: BP 147/75; PULSE 63
[2021-06-08 12:45] VITALS: BP 135/79; PULSE 63
[2021-06-08 13:15] VITALS: BP 120/61; PULSE 65; RESP 17; TEMP 36.7; O2SAT 97
== END 2021-06-08 13:18 | disposition home or self-care (01) ==
LOC: INF 10:16
PROVIDERS: PCP Nurse Practitioner Family; Visit Provider Internal Medicine Medical Oncology
DX: C56.9 Malignant neoplasm of unspecified ovary (principal); Z51.11 Encounter for antineoplastic chemotherapy
CPT/HCPCS: 80053; 85025; 96413; J9201; Q0166

== ENCOUNTER 2021-06-22 10:37 | Outpatient (CLI) | payer MEDICARE, MEDICAID, SELFPAY ==
[2021-06-22 10:45] VITALS: BMI 27.1
[2021-06-22 11:04] LABS: Basophils % 0.7 % (0.1-2.0); Eosinophils # 0.1 K/mm3 (0.0-0.4); Eosinophils % 1.5 % (0.1-12.0); Hematocrit 41.2 % (37.0-47.0); Hemoglobin 13.4 g/dL (12.2-16.2); Lymphocytes % 17.1 % (10-50); Mean Corpuscular HGB Conc 32.6 g/dL (31.8-35.4); Mean Corpuscular Hemoglobin 31.8 pg (27.0-31.2); Mean Corpuscular Volume 97.4 fl (81-99); Mean Platelet Volume 8.8 fl (7.4-10.4); Monocytes # 0.5 K/mm3 (0.1-1.0); Monocytes % 8.6 % (1.7-9.3); Neutrophils # 4.1 K/mm3 (1.8-7.8); Platelet Count 162 K/mm3 (142-424); Red Blood Count 4.22 M/mm3 (4.20-5.40); White Blood Count 5.7 K/mm3 (4.8-10.8)
[2021-06-22 11:09] LABS: Chloride 103 mmol/L (98-107); Potassium 4.6 mmoL/L (3.5-5.1); Sodium 140 mmol/L (136-145)
[2021-06-22 11:11] LABS: Alanine Aminotransferase 19 U/L (12-78); Aspartate Amino Transferase 33 U/L (14-36); Blood Urea Nitrogen 12 mg/dl (7-17); Creatinine Clearance Estimated 50 mL/min (50-200); Estimated Glomerular Filt Rate 60 ml/min (>60); GFR (African American) 73 ML/MIN (>60)
[2021-06-22 11:12] LABS: Albumin Level 4.5 g/dl (3.5-5.0); Albumin/Globulin Ratio 1.5 (1.1-1.8); Alkaline Phosphatase 83 U/L (38-126); Anion Gap 15.6 mEq/L (5-15); Bilirubin,Total 0.5 mg/dl (0.2-1.3); Calcium 9.5 mg/dl (8.4-10.2); Carbon Dioxide 26 mmol/L (22.0-30.0); Globulin 3.1 g/dL (1.3-3.2); Glucose 109 mg/dl (74-100); Total Protein,Serum 7.6 g/dl (6.3-8.2)
[2021-06-22 11:22] VITALS: BP 155/72; PULSE 66; RESP 20; TEMP 36.7; O2SAT 99
[2021-06-22 11:57] VITALS: BP 162/79; PULSE 71; RESP 20; O2SAT 99
[2021-06-22 12:50] VITALS: BP 133/76; PULSE 68; RESP 20; O2SAT 98
== END 2021-06-22 12:50 | disposition home or self-care (01) ==
LOC: INF 10:39
PROVIDERS: PCP Nurse Practitioner Family; Visit Provider Internal Medicine Medical Oncology
DX: Z51.11 Encounter for antineoplastic chemotherapy (principal); C56.9 Malignant neoplasm of unspecified ovary
CPT/HCPCS: 80053; 85025; 96413; J9201; Q0166

== ENCOUNTER 2021-07-13 10:06 | Outpatient (CLI) | payer MEDICARE, MEDICAID, SELFPAY ==
[2021-07-13 10:10] VITALS: BMI 27.1
[2021-07-13 10:30] LABS: Basophils % 0.8 % (0.1-2.0); Eosinophils # 0.2 K/mm3 (0.0-0.4); Eosinophils % 2.8 % (0.1-12.0); Hemoglobin 13.8 g/dL (12.2-16.2); Lymphocytes # 1.1 K/mm3 (0.7-4.5); Lymphocytes % 19.8 % (10-50); Mean Corpuscular HGB Conc 32.8 g/dL (31.8-35.4); Mean Corpuscular Hemoglobin 31.8 pg (27.0-31.2); Mean Platelet Volume 8.2 fl (7.4-10.4); Monocytes # 0.4 K/mm3 (0.1-1.0); Monocytes % 8.1 % (1.7-9.3); Neutrophils # 3.6 K/mm3 (1.8-7.8); Neutrophils % 68.5 % (37.0-80.0); Platelet Count 205 K/mm3 (142-424); Red Blood Count 4.33 M/mm3 (4.20-5.40); Red Cell Distribution Width 15.8 % (11.5-17.5); White Blood Count 5.3 K/mm3 (4.8-10.8)
[2021-07-13 10:32] LABS: Chloride 108 mmol/L (98-107); Sodium 139 mmol/L (136-145)
[2021-07-13 10:33] LABS: Potassium 4.4 mmoL/L (3.5-5.1)
[2021-07-13 10:35] LABS: Alanine Aminotransferase 15 U/L (12-78); Alkaline Phosphatase 82 U/L (38-126); Aspartate Amino Transferase 33 U/L (14-36); Bilirubin,Total 0.5 mg/dl (0.2-1.3); Blood Urea Nitrogen 11 mg/dl (7-17); Creatinine Clearance Estimated 50 mL/min (50-200); Estimated Glomerular Filt Rate 69 ml/min (>60); GFR (African American) 84 ML/MIN (>60)
[2021-07-13 10:36] LABS: Albumin Level 4.2 g/dl (3.5-5.0); Albumin/Globulin Ratio 1.2 (1.1-1.8); Anion Gap 10.4 mEq/L (5-15); Calcium 8.7 mg/dl (8.4-10.2); Carbon Dioxide 25 mmol/L (22.0-30.0); Globulin 3.4 g/dL (1.3-3.2); Glucose 114 mg/dl (74-100); Total Protein,Serum 7.6 g/dl (6.3-8.2)
--- NOTE | 2021-07-13 11:40 | PC.NURSE ---
1140-pt went to restroom and was returning to chair when she had an episode of dizziness/weakness; pt is oriented to self and place but is very drowsy and tired; she states she can't see her vision is blurry and pupils were pinpoint ;she is very restless;pt will follow simple commands
--- NOTE | 2021-07-13 11:40 | PC.NURSE ---
1110-pt back from appointment; premed kytril 2mg given at this time
[2021-07-13 12:00] VITALS: BP 172/67; PULSE 72; RESP 18; O2SAT 99
--- NOTE | 2021-07-13 12:00 | PC.NURSE ---
1200-called to notify about unchanged condition; md states to send pt to er for further evaluation 1200-called and gave report to linn ansari; pt to go to er room 4
--- NOTE | 2021-07-13 12:00 | PC.NURSE ---
1145-notified about pt episode; she states to watch patient for about 15mins and call back with update;do not start chemo at this time
== END 2021-07-13 12:00 | disposition still patient (30) ==
LOC: INF 10:07
PROVIDERS: PCP Nurse Practitioner Family; Visit Provider Internal Medicine Medical Oncology
DX: C56.9 Malignant neoplasm of unspecified ovary (principal)
CPT/HCPCS: 80053; 85025; J9201; Q0166

== ENCOUNTER 2021-07-13 12:11 | Emergency (ER) | payer MEDICARE, MEDICAID, SELFPAY ==
[2021-07-13 12:12] VITALS: BP 165/74; PULSE 74; RESP 22; TEMP 37.1; O2SAT 98; BMI 27.1
--- NOTE | 2021-07-13 12:14 | ECG_ITS ---
APPROVED REPORT Exam: Resting ECG HR:72 bpm ECG Measurements Heart Rate 72 AXES PA 176 P 47 QRSd 84 QRS 3 QT 374 T 32 QTc 409 Conclusion Normal sinus rhythm Left atrial abnormality Low voltage QRS Borderline ECG Electronically signed by : Nehemias Fernandez MD 07/15/2021 09:00:13
[2021-07-13 12:17] VITALS: BMI 27.1
--- NOTE | 2021-07-13 12:17 | CT_ITS ---
PROCEDURE: CT HEAD/BRAIN WO CON CLINICAL INDICATION: altered mental status COMPARISON: No exams were available for comparison TECHNIQUE: Axial images obtained. All CT scans at the facility use one or more dose reduction, viz: automated exposure control, ma/kV adjustment per patient size (including targeted exams where dose is matched to indication, i.e. head), or iterative reconstruction technique. FINDINGS: No midline shift, mass effect, intracranial hemorrhage, hydrocephalus, or extra-axial fluid collection is evident. The calvarium has an unremarkable appearance. No mastoid effusion. No sinus air-fluid level. IMPRESSION: No acute intracranial finding Dictated by: Juan Carlos Giraldo MD 07/13/2021 12:40 Juan Carlos Giraldo MD in [facility] 07/13/2021 12:40
--- NOTE | 2021-07-13 12:20 | XR_ITS ---
PROCEDURE: XR CHEST AP CLINICAL HISTORY: ams Ovarian cancer COMPARISON: CT CT CHEST W CON from 05/01/2021 FINDINGS: The cardiomediastinal silhouette and pulmonary vascularity are within normal limits. The lungs are clear without infiltrates, suspicious nodules, or pleural effusions. No acute bony abnormalities. IMPRESSION: No acute findings. Dictated by: Juan Carlos Giraldo MD 07/13/2021 13:40 Juan Carlos Giraldo MD in [facility] 07/13/2021 13:40
--- NOTE | 2021-07-13 12:35 | PC.NURSE ---
Pt returned from CT
[2021-07-13 12:44] LABS: Troponin I < 0.01 ng/ml (0.00-0.034)
[2021-07-13 12:53] VITALS: BP 138/56; PULSE 74; RESP 20; O2SAT 98
--- NOTE | 2021-07-13 12:54 | PC.NURSE ---
daughter at bedside. Pt able to answer questions appropriately at this time but she does not remember exactly what happened earlier this date.
[2021-07-13 13:03] LABS: Microscopic, Urine URINE MICROSCOPIC (MICROSCOPIC)
[2021-07-13 13:06] LABS: Appearance,Urine CLEAR (Clear); Bilirubin,Urine Negative (Negative); Blood, Urine Negative (Negative); Color,Urine YELLOW (Yellow); Glucose,Urine (UA) Negative (Negative); Ketones,Urine Negative (Negative); Leukocyte Esterase,Urine Negative (Negative); Nitrate,Urine Negative (Negative); Protein,Urine Negative (Negative); Urobilinogen,Urine 0.2 EU/dl (0.2)
[2021-07-13 13:18] LABS: Transitional Epi Cells,Urine OCC #/lpf (0-3)
--- NOTE | 2021-07-13 13:32 | HMH.EDGENADL ---
ED Disposition Clinical Impression: Near syncope Disposition: Home, Self-Care Condition on Discharge: Good Instructions: DI for Altered Mental Status Additional Instructions: Return to the emergency department if symptoms recur. Reschedule your chemotherapy infusion. Referrals: Juan Pablo Lr APRN [Primary Care Provider] - - Critical Care Critical Care Time: No Attestation: On 07/13/21, the high probability of a clinically significant, sudden or life threatening deterioration of the following system(s) required my full and direct attention, intervention and personal management. The time I documented below is in addition to time spent performing reported procedures but includes the following listed in this critical care notation. Medical Decision Making - Medical Records Medical records reviewed: Yes: I reviewed the patient's medical records. MR Comment: Reviewed office note from Dr. Howe from [facility]. - Johny Inquiry Pt receiving controlled substance: No Vital Signs: 07/13/21 12:12 07/13/21 12:53 Temperature 98.7 F Temperature Source Oral Pulse Rate 74 Pulse Rate [Right] 74 Respiratory Rate 22 20 Blood Pressure 138/56 L Blood Pressure [Right Arm] 165/74 H Blood Pressure Mean [Right Arm] 104 Blood Pressure Source Automatic Cuff Blood Pressure Source [Right Arm] Automatic Cuff Blood Pressure Position Sitting Blood Pressure Position [Right Arm] Sitting 02 Sat by Pulse Oximetry 98 98 Oxygen Delivery Method Room Air Room Air - Lab Data Lab Results 07/13/21 10:16: Troponin I < 0.01 07/13/21 12:50: Urine Color Yellow, Urine Appearance Clear, Urine pH 7.0, Ur Specific [place] 1.010, Urine Protein Negative, Urine Glucose (UA) Negative, Urine Ketones Negative, Urine Blood Negative, Urine Nitrate Negative, Urine Bilirubin Negative, Urine Urobilinogen 0.2, Ur Leukocyte Esterase Negative, Urine RBC None, Urine WBC None, Ur Squamous Epith Cells None, Ur Transition Epith Cell Occ, Urine Bacteria None Orders (Tests/Meds): ORDERS Category Date Time Status Troponin I Q3H Lab 07/13/21 15:30 Ordered Troponin I Q3H Lab 07/13/21 18:30 Ordered - Radiology Data #1 Image(s): Chest Image Reviewed: Yes I reviewed the patient's radiology image, Yes I have reviewed radiologist's interpretation PROCEDURE: XR CHEST AP CLINICAL HISTORY: ams Ovarian cancer COMPARISON: CT CT CHEST W CON from 05/01/2021 FINDINGS: The cardiomediastinal silhouette and pulmonary vascularity are within normal limits. The lungs are clear without infiltrates, suspicious nodules, or pleural effusions. No acute bony abnormalities. IMPRESSION: No acute findings. Dictated by: Juan Carlos Giraldo MD 07/13/2021 13:40 Juan Carlos Giraldo MD in [facility] 07/13/2021 13:40 - CT Data CT Scan: Head Time Received: 13:[address] Reviewed: Yes: I have viewed the radiologist's interpretation Findings Narrative: PROCEDURE: CT HEAD/BRAIN WO CON CLINICAL INDICATION: altered mental status COMPARISON: No exams were available for comparison TECHNIQUE: Axial images obtained. All CT scans at the facility use one or more dose reduction, viz: automated exposure control, ma/kV adjustment per patient size (including targeted exams where dose is matched to indication, i.e. head), or iterative reconstruction technique. FINDINGS: No midline shift, mass effect, intracranial hemorrhage, hydrocephalus, or extra-axial fluid collection is evident. The calvarium has an unremarkable appearance. No mastoid effusion. No sinus air-fluid level. IMPRESSION: No acute intracranial finding Dictated by: Juan Carlos Giraldo MD 07/13/2021 12:40 Juan Carlos Giraldo MD in [facility] 07/13/2021 12:40 - ECG Data Tracing #1 EKG interpreted by John Estrada MD: Rhythm: sinus Rate: 72 War: normal Ectopy: none Conduction: normal ST Segment Changes: none T Wave Changes: none Q Waves: none No evidence of acute ischemia
[2021-07-13 14:28] VITALS: BP 146/72; PULSE 87; RESP 16; TEMP 36.8; O2SAT 98
== END 2021-07-13 14:40 | disposition home or self-care (01) ==
PROVIDERS: Emergency Provider Emergency Medicine; PCP Nurse Practitioner Family
DX: R55 Syncope and collapse (principal); C56.9 Malignant neoplasm of unspecified ovary; I10 Essential (primary) hypertension
CPT/HCPCS: 70450; 71045; 80053; 81001; 84484; 85025; 93005; 99283; Q0166

== ENCOUNTER 2021-07-27 08:52 | Outpatient (CLI) | payer MEDICARE, MEDICAID, SELFPAY ==
--- NOTE | 2021-07-27 09:15 | CT_ITS ---
PROCEDURE INFORMATION: Exam: CT Chest With Contrast; Diagnostic Exam date and time: 07/27/2021 9:15 AM Age: 80 years old Clinical indication: Condition or disease; Other: Ovarian cancer; Prior surgery TECHNIQUE: Imaging protocol: Diagnostic computed tomography of the chest with contrast. Radiation optimization: All CT scans at this facility use at least one of these dose optimization techniques: automated exposure control; mA and/or kV adjustment per patient size (includes targeted exams where dose is matched to clinical indication); or iterative reconstruction. Contrast material: ISOVUE; Contrast volume: 75 ml; Contrast route: IV; COMPARISON: CT CHEST W CON 05/01/2021 9:53 AM FINDINGS: Lungs: 7 mm nodule in the posterolateral left lower lobe again noted at 4-44. 2 mm nodule in the posterior left lower lobe at 4-49. Both nodules are stable in the interval. A 2 mm nodule in the posteromedial right lower lobe at 4-56 is stable in the interval. Several other tiny nodules in the upper lungs are stable since the previous study. No new pulmonary nodules or masses. No pulmonary infiltrate or consolidation. Pleural spaces: Unremarkable. No pneumothorax. No pleural effusion. Heart: Unremarkable. No cardiomegaly. No pericardial effusion. Aorta: Unremarkable. No aortic aneurysm. Lymph nodes: Unremarkable. No enlarged lymph nodes. Diaphragm: Small hiatal hernia, present previously. Bones/joints: Unremarkable. No acute fracture. Soft tissues: Unremarkable. IMPRESSION: 1. Small pulmonary nodules, stable since the previous study. Fleischner Society follow up recommendations for incidental nodules are not indicated. Follow up per the patient's medical condition. 2. No other acute changes in the chest.
--- NOTE | 2021-07-27 09:15 | CT_ITS ---
PROCEDURE INFORMATION: Exam: CT Abdomen And Pelvis With Contrast Exam date and time: 07/27/2021 9:15 AM Age: 80 years old Clinical indication: Condition or disease; Other: Ovarian cancer; Prior surgery TECHNIQUE: Imaging protocol: Computed tomography of the abdomen and pelvis with contrast. Radiation optimization: All CT scans at this facility use at least one of these dose optimization techniques: automated exposure control; mA and/or kV adjustment per patient size (includes targeted exams where dose is matched to clinical indication); or iterative reconstruction. Contrast material: ISOVUE; Contrast volume: 75 ml; Contrast route: IV; COMPARISON: CT ABDOMEN PELVIS W CON 05/01/2021 9:53 AM FINDINGS: Lungs: 7 mm nodule in the posterolateral left lower lobe, stable since the previous study. Diaphragm: Small hiatal hernia, present previously. Liver: Again noted is a small area of dystrophic calcification in the lateral right hepatic lobe. A 9 mm hypodensity in the posterolateral right lobe is new since the previous study. Gallbladder and bile ducts: Prior cholecystectomy again noted. Normal bile ducts. Pancreas: Normal. No ductal dilation. Spleen: Normal. No splenomegaly. Adrenal glands: Normal. No mass. Kidneys and ureters: Normal. No hydronephrosis. Stomach and bowel: Again noted is a mass in the distal stomach. The mass is larger in the interval measuring 5.5 x 4.2 x 3.3 cm. This compares to 5.1 x 3.2 x 3.1 cm on the previous study. There is impingement of the lumen. The intestine is unremarkable. No inflammatory change. No obstruction. Appendix: No evidence for appendicitis. Intraperitoneal space: Unremarkable. No free air. No significant fluid collection. Vasculature: No aortic aneurysm or dissection. Lymph nodes: Again noted are periportal lymph nodes in the hepatic hilum. They are larger in the interval, now measuring up to 2.1 cm. Again noted is a mass interposed between the portal vein and inferior vena cava, now measuring 3.9 cm. This compares to 3.6 cm on the previous study. Retroperitoneal adenopathy is worse in the interval. Mesenteric adenopathy is worse in the interval. Urinary bladder: Unremarkable as visualized. Reproductive: Again noted is the complex mass originating in the pelvis. The mass is partly solid and partly cystic. The mass measures 15.3 cm in the craniocaudad dimension by 11.5 cm in the AP dimension by 14.4 cm transversely. This compares to 12.8 x 10.7 x 10.9 cm on the previous study. Bones/joints: Unremarkable. No acute fracture. Soft tissues: Unremarkable. IMPRESSION: 1. Large complex mass in the pelvis, larger in the interval. 2. Metastatic disease in the hepatic hilum, pericaval area, retroperitoneum, and mesentery is all worse in the interval. 3. Small hypodensity in the liver, new in the interval. The finding is worrisome for new metastatic disease. 4. Mass in the distal stomach, larger in the interval.
[2021-07-27 09:27] LABS: Blood Urea Nitrogen 11 mg/dl (7-17); Estimated Glomerular Filt Rate 60 ml/min (>60); GFR (African American) 73 ML/MIN (>60)
--- NOTE | 2021-07-27 12:08 | PC.NURSE ---
1208-collected urine sample for ua and culture. pt home with family
[2021-07-27 12:14] VITALS: BMI 27.6
[2021-07-27 12:22] LABS: Microscopic, Urine URINE MICROSCOPIC (MICROSCOPIC)
[2021-07-27 12:27] LABS: Appearance,Urine CLEAR (Clear); Bilirubin,Urine Negative (Negative); Blood, Urine Negative (Negative); Color,Urine YELLOW (Yellow); Glucose,Urine (UA) Negative (Negative); Ketones,Urine Negative (Negative); Leukocyte Esterase,Urine Negative (Negative); Nitrate,Urine Negative (Negative); Protein,Urine Negative (Negative); Urobilinogen,Urine 0.2 EU/dl (0.2)
[2021-07-27 12:39] LABS: Squamous Epithelial Cell,Urine Occasional #/hpf (0-5); WBC,Urine Occasional #/hpf (0-3)
== END 2021-07-27 12:10 | disposition home or self-care (01) ==
PROVIDERS: PCP Nurse Practitioner Family; Visit Provider Internal Medicine Medical Oncology
DX: N39.0 Urinary tract infection, site not specified (principal); C56.9 Malignant neoplasm of unspecified ovary
CPT/HCPCS: 36415; 71260; 74177; 81001; 82565; 84520; 87086; 87088; 87186; Q9967

== ENCOUNTER 2021-09-19 13:45 | Observation (INO) | payer OTHER, SELFPAY ==
[2021-09-19] VITALS (18 sets, daily range): BP systolic 103–170; BP diastolic 49–99; PULSE 63–142; RESP 9–23; TEMP 36.8–36.9; O2SAT 94–97; BMI 27.1; BMI 25.0
--- NOTE | 2021-09-19 13:54 | HMH.EDGENADL ---
ED Disposition Clinical Impression: Atrial fibrillation with rapid ventricular response, New onset atrial fibrillation Ovarian cancer Qualifiers: Laterality: unspecified laterality Qualified Code(s): C56.9 - Malignant neoplasm of unspecified ovary Disposition: Admitted as Observation Condition on Discharge: Fair - Critical Care Critical Care Time: No Attestation: On 09/19/21, the high probability of a clinically significant, sudden or life threatening deterioration of the following system(s) required my full and direct attention, intervention and personal management. The time I documented below is in addition to time spent performing reported procedures but includes the following listed in this critical care notation. Medical Decision Making - Medical Records Medical records reviewed: Yes: I reviewed the patient's medical records. MR Comment: Reviewed most recent oncology note from 07/27/2021, Dr. Howe. Patient has endometrial cancer, high-grade serous carcinoma, progressive disease. [place] to be no good treatment options and hospice recommended. - Johny Inquiry Pt receiving controlled substance: No Vital Signs: 09/19/21 13:49 09/19/21 14:01 09/19/21 14:30 Temperature 98.5 F Temperature Source Oral Pulse Rate 63 109 H Pulse Rate [Right Brachial] 142 H Respiratory Rate 18 15 12 Blood Pressure 170/81 H 133/82 Blood Pressure [Right Arm] 157/83 H Blood Pressure Mean [Right Arm] 107 Blood Pressure Source Automatic Cuff Blood Pressure Source [Right Arm] Automatic Cuff Blood Pressure Position Sitting Blood Pressure Position [Right Arm] Sitting 02 Sat by Pulse Oximetry 95 97 95 Oxygen Delivery Method Room Air Room Air 09/19/21 14:41 09/19/21 15:20 09/19/21 15:31 Temperature Temperature Source Pulse Rate 98 H 98 H 82 Pulse Rate [Right Brachial] Respiratory Rate 12 17 18 Blood Pressure 103/60 L 133/68 128/65 Blood Pressure [Right Arm] Blood Pressure Mean [Right Arm] Blood Pressure Source Blood Pressure Source [Right Arm] Blood Pressure Position Blood Pressure Position [Right Arm] 02 Sat by Pulse Oximetry 95 96 97 Oxygen Delivery Method 09/19/21 15:45 09/19/21 16:01 09/19/21 16:30 Temperature Temperature Source Pulse Rate 88 99 H 85 Pulse Rate [Right Brachial] Respiratory Rate 11 L 10 L 13 Blood Pressure 118/70 108/51 L 118/58 L Blood Pressure [Right Arm] Blood Pressure Mean [Right Arm] Blood Pressure Source Blood Pressure Source [Right Arm] Blood Pressure Position Blood Pressure Position [Right Arm] 02 Sat by Pulse Oximetry 96 96 96 Oxygen Delivery Method 09/19/21 17:00 09/19/21 17:09 09/19/21 17:30 Temperature Temperature Source Pulse Rate 94 H 96 H 82 Pulse Rate [Right Brachial] Respiratory Rate 18 12 9 L Blood Pressure 161/99 H 118/66 126/80 Blood Pressure [Right Arm] Blood Pressure Mean [Right Arm] Blood Pressure Source Blood Pressure Source [Right Arm] Blood Pressure Position Blood Pressure Position [Right Arm] 02 Sat by Pulse Oximetry 96 95 95 Oxygen Delivery Method 09/19/21 18:00 Temperature Temperature Source Pulse Rate 80 Pulse Rate [Right Brachial] Respiratory Rate 17 Blood Pressure 104/51 L Blood Pressure [Right Arm] Blood Pressure Mean [Right Arm] Blood Pressure Source Blood Pressure Source [Right Arm] Blood Pressure Position Blood Pressure Position [Right Arm] 02 Sat by Pulse Oximetry Oxygen Delivery Method - Lab Data Lab Results 09/19/21 14:20: WBC 8.6, RBC 5.07, Hgb 15.5, Hct 45.0, MCV 88.9, MCH 30.5, MCHC 34.4, RDW 13.2, Plt Count 200, MPV 8.0, Neut % (Auto) 81.9 H, Lymph % (Auto) 10.6, Foard % (Auto) 6.6, Eos % (Auto) 0.6, Baso % (Auto) 0.2, Neut # (Auto) 7.0, Lymph # (Auto) 0.9, Foard # (Auto) 0.6, Eos # (Auto) 0.1, Baso # (Auto) 0.0 09/19/21 14:20: Sodium 141, Potassium 4.0, Chloride 102, Carbon Dioxide 29, Anion Gap 14.0, BUN 12, Crea
--- NOTE | 2021-09-19 14:06 | XR_ITS ---
PROCEDURE: XR CHEST PORTABLE CLINICAL HISTORY: rapid HR COMPARISON: CR XR CHEST AP from 07/13/[address] CHEST W CON from 07/27/2021 FINDINGS: The cardiomediastinal silhouette and pulmonary vascularity are within normal limits. The lungs are clear without infiltrates, suspicious nodules, or pleural effusions. Degenerative changes of the shoulders IMPRESSION: No acute findings. Dictated by: Juan Carlos Giraldo MD 09/19/2021 14:37 Juan Carlos Giraldo MD in [facility] 09/19/2021 14:37
--- NOTE | 2021-09-19 14:07 | CT_ITS ---
PROCEDURE: CT ANGIO CHEST PE PROTOCOL CLINCIAL INDICATION: new onset afib, cancer, r/o PE History of ovarian cancer COMPARISON: CT CT CHEST W CON from 07/27/2021 TECHNIQUE: IV Contrast: 70ML Isovue 370 Axial images obtained with sagittal and coronal reformats. All CT scans at the facility use one or more dose reduction, viz: automated exposure control, ma/kV adjustment per patient size (including targeted exams where dose is matched to indication, i.e. head), or iterative reconstruction technique. FINDINGS: HEART AND MEDIASTINAL STRUCTURES: There are enlarged left supraclavicular lymph nodes the largest of which is 2 x 1.5 cm and appears slightly larger compared to the previous exam. Left lobe of the thyroid gland is somewhat enlarged with low-density changes inferiorly. There is prominence of the sternoclavicular joints. There are few small nodes within the mediastinum not significantly changed LUNGS AND PLEURAL SPACES: 4 mm noncalcified nodules present in the right upper lobe unchanged. There are scattered ill-defined areas of faint ground-glass attenuation . Atypical/Covid19 pneumonia is considered. Subpleural nodular opacity is present in the posterior aspect of the left lower lobe. Not significantly changed. BONY STRUCTURES: There is ankylosis of the thoracic spine. UPPER ABDOMEN: Please see abdomen report ADDITIONAL FINDINGS: Enlarged right axillary lymph nodes measuring up to 1.6 cm. These nodes are slightly larger. IMPRESSION: Left supraclavicular and right axillary adenopathy slightly worse. No new pulmonary nodules. No change in the right upper lobe and left lower lobe pulmonary nodules. New somewhat ill-defined ground-glass infiltrates in both upper and lower lobes. This could represent atypical/Covid19 pneumonia Dictated by: Juan Carlos Giraldo MD 09/19/2021 15:56 Juan Carlos Giraldo MD in [facility] 09/19/2021 15:56
--- NOTE | 2021-09-19 14:07 | CT_ITS ---
PROCEDURE: CT ABDOMEN PELVIS W CON CLINICAL INDICATION: abdo pain, distension, vomiting. has ovarian ca COMPARISON: CT CT ABDOMEN PELVIS W CON from 07/27/2021 TECHNIQUE: IV Contrast: 75ML Isovue 370 Oral Contrast None Axial images obtained with sagittal and coronal reformats. All CT scans at the facility use one or more dose reduction, viz: automated exposure control, ma/kV adjustment per patient size (including targeted exams where dose is matched to indication, i.e. head), or iterative reconstruction technique. FINDINGS: Liver margin is somewhat irregular. Coarse calcification noted in the liver posteriorly. There are few small hypodense hepatic lesions consistent with metastatic disease with at least 3 new lesions apparent. The spleen and adrenal glands are unremarkable. Bilateral renal cortical scarring right more extensive than left with bilateral renal cysts. No hydronephrosis. There is extensive metastatic disease within the mesenteries and retroperitoneum. There is a large complex cystic pelvic mass with thickened ang and septations measuring up to 15 cm transverse, 17 cm cephalad caudad, and 13 cm AP. The mass may be slightly larger. The mass is splaying the sigmoid colon left laterally. Transverse mesocolon metastasis noted. A mass involves the stomach at the antrum measuring 6 x 4.5 cm previously 5.7 x 4 cm. A right-sided retroperitoneal mass at the level the renal vein measures 4.8 x 3.5 cm previously 4 by 2.8 cm. Periportal mass noted measuring 4.6 by 3.4 cm slightly larger. Numerous small peritoneal and transverse omental masses slightly larger. There is increased soft tissue density in the region of the cervix/vaginal region which could be due to neoplasm. Sclerotic focus is present in the left ilium medially and may represent a bone island IMPRESSION: 1. Hepatic metastasis slightly progressed. 2. Large complex cystic pelvic mass consistent with ovarian carcinoma. 3. Extensive abdominal and pelvic metastatic disease with increased volume of the above mention metastatic foci along with increased number of metastatic liver foci. Dictated by: Juan Carlos Giraldo MD 09/19/2021 16:14 Juan Carlos Giraldo MD in [facility] 09/19/2021 16:14
--- NOTE | 2021-09-19 14:08 | ECG_ITS ---
APPROVED REPORT Exam: Resting ECG HR:144 bpm ECG Measurements Heart Rate 144 AXES QRSd 88 QRS 5 QT 282 T 118 QTc 436 Conclusion Atrial fibrillation with rapid ventricular response Possible Anterior infarct, age undetermined Abnormal ECG Electronically signed by : Nehemias Fernandez MD 09/19/2021 20:58:19
--- NOTE | 2021-09-19 14:22 | PC.NURSE ---
rad at bedside
[2021-09-19 14:45] LABS: Basophils % 0.2 % (0.1-2.0); Eosinophils # 0.1 K/mm3 (0.0-0.4); Eosinophils % 0.6 % (0.1-12.0); Hemoglobin 15.5 g/dL (12.2-16.2); Lymphocytes # 0.9 K/mm3 (0.7-4.5); Lymphocytes % 10.6 % (10-50); Mean Corpuscular HGB Conc 34.4 g/dL (31.8-35.4); Mean Corpuscular Hemoglobin 30.5 pg (27.0-31.2); Mean Corpuscular Volume 88.9 fl (81-99); Monocytes # 0.6 K/mm3 (0.1-1.0); Monocytes % 6.6 % (1.7-9.3); Neutrophils % 81.9 % (37.0-80.0); Platelet Count 200 K/mm3 (142-424); Red Blood Count 5.07 M/mm3 (4.20-5.40); Red Cell Distribution Width 13.2 % (11.5-17.5); White Blood Count 8.6 K/mm3 (4.8-10.8)
[2021-09-19 14:48] LABS: Chloride 102 mmol/L (98-107); Sodium 141 mmol/L (136-145)
[2021-09-19 14:50] LABS: Alanine Aminotransferase 15 U/L (12-78); Aspartate Amino Transferase 37 U/L (14-36); Blood Urea Nitrogen 12 mg/dl (7-17); Creatinine Clearance Estimated 50 mL/min (50-200); Estimated Glomerular Filt Rate 60 ml/min (>60); GFR (African American) 73 ML/MIN (>60)
[2021-09-19 14:51] LABS: Albumin Level 4.5 g/dl (3.5-5.0); Albumin/Globulin Ratio 1.3 (1.1-1.8); Alkaline Phosphatase 89 U/L (38-126); Bilirubin,Total 0.6 mg/dl (0.2-1.3); Calcium 9.7 mg/dl (8.4-10.2); Carbon Dioxide 29 mmol/L (22.0-30.0); Globulin 3.5 g/dL (1.3-3.2); Glucose 99 mg/dl (74-100); Lipase 79 U/L (23-300)
--- NOTE | 2021-09-19 14:51 | PC.NURSE ---
Phone update given to daughter with Pt. consent.
[2021-09-19 15:00] LABS: NT Pro Brain Natriuretic Pep. 233 pg/mL (0-450)
[2021-09-19 15:05] LABS: Troponin I < 0.01 ng/ml (0.00-0.034)
[2021-09-19 15:17] LABS: Triiodothryronine (T3) Uptake 29 % (23.5-40.5)
[2021-09-19 15:18] LABS: Free Thyroxine Index 4.7 ug/dL (5.93-13.13); T4 (Thyroxine) 16.3 ug/dl (5.53-11.0)
--- NOTE | 2021-09-19 15:26 | PC.NURSE ---
Phone update to pts son and daughter in law.
[2021-09-19 15:31] LABS: Thyroid Stimulating Hormone 2.39 uIU/mL (0.465-4.68)
--- NOTE | 2021-09-19 15:48 | PC.NURSE ---
Diltiazem IV bolus 10 mg given and drip increased to 10mg/hr at this time per ER MD request
[2021-09-19 16:06] LABS: Coronavirus 19, PCR Not Detected (NotDetected); Influenza A, PCR Not Detected (NotDetected); Influenza B, PCR Not Detected (NotDetected)
--- NOTE | 2021-09-19 17:09 | PC.NURSE ---
increased diltiazem drip to 15mg/hr at this time
--- NOTE | 2021-09-19 17:52 | PC.NURSE ---
attempted to call report, no answer from primary receiving nurse. patient registration clerk states she will have her call back to ER to get report, states they are moving a pt.
[2021-09-19 17:55] LABS: Troponin I < 0.01 ng/ml (0.00-0.034)
--- NOTE | 2021-09-19 18:26 | PC.NURSE ---
report called to to murphyrn on second floor at this time states pt room is currently being cleaned, will call when room is ready
--- NOTE | 2021-09-19 18:48 | PC.NURSE ---
pt arrived to the floor at this time
--- NOTE | 2021-09-19 18:50 | PC.NURSE ---
pt arrived to floor via ED stretcher
--- NOTE | 2021-09-19 21:20 | HMH.HP ---
*Admission Date: 09/19/21 *Chief complaint: atrial fibrillation *History of present illness: Patient is an unfortunate 80-year-old with widely metastatic ovarian cancer. She has been followed by Dr. Howe, no further treatment options available. Her disease is very extensive. She was placed under hospice care for comfort. Earlier today the patient experienced an episode of dyspnea. She has no cardiac history, was found to be in atrial fibrillation with a rapid ventricular response. Cardizem bolus and drip were subsequently started for rate control to good success. She is currently in A. fib in the high 60s. Her troponins were negative. She is experiencing no chest pain or dyspnea. In the ER included imaging of the chest FINDINGS: HEART AND MEDIASTINAL STRUCTURES: There are enlarged left supraclavicular lymph nodes the largest of which is 2 x 1.5 cm and appears slightly larger compared to the previous exam. Left lobe of the thyroid gland is somewhat enlarged with low-density changes inferiorly. There is prominence of the sternoclavicular joints. There are few small nodes within the mediastinum not significantly changed LUNGS AND PLEURAL SPACES: 4 mm noncalcified nodules present in the right upper lobe unchanged. There are scattered ill-defined areas of faint ground-glass attenuation . Atypical/Covid19 pneumonia is considered. Subpleural nodular opacity is present in the posterior aspect of the left lower lobe. Not significantly changed. BONY STRUCTURES: There is ankylosis of the thoracic spine. UPPER ABDOMEN: Please see abdomen report ADDITIONAL FINDINGS: Enlarged right axillary lymph nodes measuring up to 1.6 cm. These nodes are slightly larger. IMPRESSION: Left supraclavicular and right axillary adenopathy slightly worse. No new pulmonary nodules. No change in the right upper lobe and left lower lobe pulmonary nodules. New somewhat ill-defined ground-glass infiltrates in both upper and lower lobes. This could represent atypical/Covid19 pneumonia Patient also underwent imaging of the abdomen FINDINGS: Liver margin is somewhat irregular. Coarse calcification noted in the liver posteriorly. There are few small hypodense hepatic lesions consistent with metastatic disease with at least 3 new lesions apparent. The spleen and adrenal glands are unremarkable. Bilateral renal cortical scarring right more extensive than left with bilateral renal cysts. No hydronephrosis. There is extensive metastatic disease within the mesenteries and retroperitoneum. There is a large complex cystic pelvic mass with thickened ang and septations measuring up to 15 cm transverse, 17 cm cephalad caudad, and 13 cm AP. The mass may be slightly larger. The mass is splaying the sigmoid colon left laterally. Transverse mesocolon metastasis noted. A mass involves the stomach at the antrum measuring 6 x 4.5 cm previously 5.7 x 4 cm. A right-sided retroperitoneal mass at the level the renal vein measures 4.8 x 3.5 cm previously 4 by 2.8 cm. Periportal mass noted measuring 4.6 by 3.4 cm slightly larger. Numerous small peritoneal and transverse omental masses slightly larger. There is increased soft tissue density in the region of the cervix/vaginal region which could be due to neoplasm. Sclerotic focus is present in the left ilium medially and may represent a bone island IMPRESSION: 1. Hepatic metastasis slightly progressed. 2. Large complex cystic pelvic mass consistent with ovarian carcinoma. 3. Extensive abdominal and pelvic metastatic disease with increased volume of the above mention metastatic foci along with increased number of metastatic liver foci. Patient had previously been to hospice care, and with the onset of days episode decided that she wants aggressive measures taken. Family members are coming in from [place]. I believe that the patient unde
[2021-09-19 21:50] LABS: Troponin I < 0.01 ng/ml (0.00-0.034)
[2021-09-20] VITALS (8 sets, daily range): BP systolic 98–128; BP diastolic 55–65; PULSE 61–90; RESP 17–22; TEMP 36.7–36.8; O2SAT 92–95; BMI 25.2
--- NOTE | 2021-09-20 05:12 | ECG_ITS ---
APPROVED REPORT Exam: Resting ECG HR:68 bpm ECG Measurements Heart Rate 68 AXES [place] 162 P 45 QRSd 90 QRS -2 QT 402 T 54 QTc 427 Conclusion Normal sinus rhythm Left atrial abnormality Late r wave progression Isolated Q in III Abnormal ECG Electronically signed by : Nehemias Fernandez MD 09/20/2021 20:36:25
--- NOTE | 2021-09-20 05:27 | PC.NURSE ---
pt converted to NSR, 12 lead EKG obtained and confirmed. Pedros paged and ordered to stop drip and give 240mg PO cardizem now.
--- NOTE | 2021-09-20 08:41 | CA_ITS ---
APPROVED REPORT EXAM: Comprehensive 2D, Doppler, and color-flow Echocardiogram [employer] Worker: Cris Guevara, RCS, RVS Ht: 5 ft 2 in Wt: 142lbs BSA: 1.65 BP: 122/65 mmHg Indications: New onset A-Fib, Dyspnea on exertion, Metastic ovarian cancer 2D Dimensions IVSd 0.94 cm LVEF (Visual) 61.60 % PWd 0.83 cm LA Volume 45.70 mL LVDd 4.27 cm LA Volume Index 27.768386 mL/m2 (M/F) 16-34 LVDs 2.87 cm Aortic Root 2.81 cm Left Atrium 4.35 cm LVOT 1.97 cm (M/F) 1.5-2.5 M-Mode Dimensions RVDd 2.21 cm (0.9-2.6) LA Diam 4.36 cm (1.9-4.0) LVDd 4.34 cm (3.5-5.7) Ao Diam 3.04 cm (2.0-3.7) LVDs 2.88 cm (3.5-5.7) IVSd 0.93 cm (0.6-1.1) PWd 0.96 cm (0.6-1.1) EF (Teich) 62.70% EPSs 0.61 cm FS 33.60% EDV (Teich) 84.90 mL TAPSE 1.97 (<1.7) ESV (Teich) 31.70 mL LV Diastology E Decel Time 243.00 (160-240 msec) E/A Ratio 1.22 MED E' 8.80 (< 7 cm/sec) MED A' 8.70 cm/s E'/MED E' Ratio 10.25 (>14) LAT E' 7.10 (<10 cm/sec) LAT A' 7.70 cm/s E/LAT E' Ratio 12.70 (>14) Aortic Valve LVOT Max 111.00 (70-110 cm/s) LVOT VTI 22.25 cm AoV Peak Jabari. 140.00 (50-130 cm/s) AO Peak GR. 7.90 mmHg AO Mean GR. 3.90 (<5 mmHg) AO VTI 25.70 (18-25 cm) NAFISA (VTI) 2.64 (2.5-4.5 cm2) Mitral Valve MV A Velocity 74.00 (40-130 cm/s) E/A Ratio 1.22 MV Decel. Time 243.00 (160-240 ms) Pulmonary Valve PV Peak Velocity 107.00 (50-150 cm/s) [place] End VMAX 153.00 cm/s Tricuspid Valve TR P. Velocity 258.00 cm/s RAP Estimate 10.00 mmHg RVSP 36.60 mmHg Left Ventricle Left atrium is mildly enlarged, left ventricle is normal size, mild concentric left ventricular hypertrophy, visually estimated ejection fraction 55% with no regional wall motion abnormality, diastolic parameters are inconclusive. Right Ventricle Right atrium and right ventricle are normal size and contractility. Aortic Valve Aortic valve is minimally thickened and fibrosed, there is no aortic stenosis or aortic insufficiency. Mitral Valve Mitral valve grossly normal, there is trace mitral regurgitation. Tricuspid Valve Tricuspid valve grossly normal, there is trace tricuspid regurgitation, tricuspid regurgitation jet velocity is inadequate for calculation of the right ventricular systolic pressure. Pulmonic Valve Pulmonic valve is poorly visualized. Great Vessels Aortic root is normal size. Inferior vena cava is poorly visualized. Pericardium No significant pericardial effusion noted. Conclusion 1. Mildly left atrium, normal left ventricular size, mild concentric left ventricular hypertrophy, visually estimated ejection fraction 55% with no regional wall motion abnormality, diastolic parameters are inconclusive. 2. Trace mitral and tricuspid regurgitation. 3. No significant pericardial effusion noted. 4. Inferior vena cava is poorly visualized. Electronically signed by : Leander Kelly MD 09/20/2021 20:26:27
--- NOTE | 2021-09-20 08:48 | HMH.CNCARD ---
History of Present Illness Consult date: 09/20/21 Requesting physician: Giovanny Gatica Consult reason: atrial fibrillation Chief complaint: Atrial fibrillation with RVR History of present illness: 80-year-old female presented to the ED with atrial fibrillation with RVR. Atrial fibrillation with new onset. Patient states while the hospice nurse was at her home, she was told her heart rate was fast and needed to go to the emergency room. Patient complained of increased shortness of breath but stated she did not feel her heart was racing. Patient has no known history of atrial fibrillation. Patient has no known history of coronary artery disease. Patient is currently in hospice care due to widely metastatic ovarian cancer which is being treated by Dr. Howe. Prognosis is poor. Patient is currently receiving no intervention or treatment for her cancer. Patient denies chest pain, tightness or pressure. Patient denies shortness of breath. Patient denies palpitations. Patient had been started on a diltiazem drip due to the atrial fibrillation with RVR. Diltiazem drip has been stopped due to patient converting into sinus rhythm overnight. Patient was given diltiazem p.o. overnight. Patient is currently on metoprolol for heart rate control. Patient is on no current anticoagulation. Patient does have history of hyperlipidemia and hypertension. property assessment monitor reveals sinus rhythm with no ectopy. Heart rate 80 bpm. Blood pressure is stable. Patient has no previous echocardiogram. Will obtain echocardiogram to assess LV function and valve status. Preliminary echo reveals EF 60%. Waiting on official echocardiogram results. [facility] History I have reviewed the patient's past medical history: Yes Medical History: Reports:: Cancer (ovarian CA), Hyperlipidemia, Hypertension Denies:: Diabetes Mellitus Type 1, Diabetes Mellitus Type 2 *Have you ever received a pneumonia vaccine?: No *Have you received a flu vaccine this season?: No Other Medical History: Reports: Arthritis, Chemotherapy Other Surgeries: Yes: Cancer Surgery, Cholecystectomy, Colonoscopy, Hysterectomy-Total, Hysterectomy-Partial Amputation: No Fractures: Yes (left wrist) - *Social History Last grade of school completed: 9th or 10th Smoking Status: Never smoker Alcohol Intake: never Substance Use Type: denies use *Occupational Status:: retired Housing: house Household Members: family *Travel in the last 8 weeks: None Family Hx:: Unable to obtain Meds Home Medications Medication Instructions Recorded Confirmed Type Metoprolol Succinate [Metoprolol 25 mg PO DAILY 09/19/21 09/19/21 History Succinate 25mg Tablet*] Allergies Allergy/AdvReac Type Severity Reaction Status Date / Time hydrocodone AdvReac Intermediate Verified 09/19/21 13:48 [From Mariekaceyt (hydrocodone)] Exam Vital signs and Labs for Last 24 Hours: Temp Pulse Resp BP Pulse Ox 98.3 F 70 22 122/65 94 L 09/20/21 07:53 09/20/21 06:00 09/20/21 06:00 09/20/21 06:00 09/20/21 06:00 Laboratory Results - last 24 hr 09/19/21 14:20: WBC 8.6, RBC 5.07, Hgb 15.5, Hct 45.0, MCV 88.9, MCH 30.5, MCHC 34.4, RDW 13.2, Plt Count 200, MPV 8.0, Neut % (Auto) 81.9 H, Lymph % (Auto) 10.6, Archule[place] % (Auto) 6.6, Eos % (Auto) 0.6, Baso % (Auto) 0.2, Neut # (Auto) 7.0, Lymph # (Auto) 0.9, Archule[place] # (Auto) 0.6, Eos # (Auto) 0.1, Baso # (Auto) 0.0 09/19/21 14:20: Sodium 141, Potassium 4.0, Chloride 102, Carbon Dioxide 29, Anion Gap 14.0, BUN 12, Creatinine 0.90, Estimated Creat Clear 50, Estimated GFR 60, Est GFR ( Amer) 73, Glucose 99, Calcium 9.7, Total Bilirubin 0.6, AST 37 H, ALT 15, Alkaline Phosphatase 89, Troponin I < 0.01, Total Protein 8.0, Albumin 4.5, Globulin 3.5 H, Albumin/Globulin Ratio 1.3, Lipase 79 09/19/21 14:20: TSH 2.39, Free T4 Index 4.7 L, Thyroxine (T4) 16.3 H, T3 Uptake 29 09/19/21 14:20: NT-Pro-B Natriuret Pep 233 09/19/21 15:56: SARS-CoV-2 (PCR) Not detected, Influenza A Untyp
--- NOTE | 2021-09-20 11:10 | P.CONPHA_ITS ---
[facility] Pharmacy VTE Monitoring - Patient Demographics Admission date: 09/20/21 Report Date: 09/20/21 Time: 11:10 Allergies/Adverse Reactions: Patient Allergies hydrocodone [From Lorcet (hydrocodone)] Adverse Reaction (Intermediate, Verified 09/19/21 13:48) Height: 1.6 m Weight: 64.467 kg Patient Problems: Current Active Problems Atrial fibrillation with rapid ventricular response (Acute) New onset atrial fibrillation (Acute) Ovarian cancer (Acute) HTN (hypertension) (Acute) Tachycardia (Chronic) Ovarian cancer (Acute) - VTE Risk Labs: VTE Related Lab Results Hgb 15.5 g/dL (12.2-16.2) 09/19/21 14:20 Hct 45.0 % (37.0-47.0) 09/19/21 14:20 Plt Count 200 K/mm3 (142-424) 09/19/21 14:20 BUN 12 mg/dl (7-17) 09/19/21 14:20 Creatinine 0.90 mg/dl (0.52-1.04) 09/19/21 14:20 Estimated Creat Clear 50 mL/min (50-200) 09/19/21 14:20 VTE Risk Level: Low Risk Clinical Trial Participant: No - Prophylaxis VTE Prophylaxis Ordered?: Yes Types of VTE Prophylaxis: TEDS Knee High
--- NOTE | 2021-09-20 14:05 | P.DS_ITS ---
General - General Admission date:: 09/19/21 Discharge date: 09/20/21 HPI HPI: Patient is an unfortunate 80-year-old with widely metastatic ovarian cancer. She has been followed by Dr. Howe, no further treatment options available. Her disease is very extensive. She was placed under hospice care for comfort. Earlier today the patient experienced an episode of dyspnea. She has no cardiac history, was found to be in atrial fibrillation with a rapid ventricular response. Cardizem bolus and drip were subsequently started for rate control to good success. She is currently in A. fib in the high 60s. Her troponins were negative. She is experiencing no chest pain or dyspnea. In the ER included imaging of the chest FINDINGS: HEART AND MEDIASTINAL STRUCTURES: There are enlarged left supraclavicular lymph nodes the largest of which is 2 x 1.5 cm and appears slightly larger compared to the previous exam. Left lobe of the thyroid gland is somewhat enlarged with low-density changes inferiorly. There is prominence of the sternoclavicular joints. There are few small nodes within the mediastinum not significantly changed LUNGS AND PLEURAL SPACES: 4 mm noncalcified nodules present in the right upper lobe unchanged. There are scattered ill-defined areas of faint ground-glass attenuation . Atypical/Covid19 pneumonia is considered. Subpleural nodular opacity is present in the posterior aspect of the left lower lobe. Not significantly changed. BONY STRUCTURES: There is ankylosis of the thoracic spine. UPPER ABDOMEN: Please see abdomen report ADDITIONAL FINDINGS: Enlarged right axillary lymph nodes measuring up to 1.6 cm. These nodes are slightly larger. IMPRESSION: Left supraclavicular and right axillary adenopathy slightly worse. No new pulmonary nodules. No change in the right upper lobe and left lower lobe pulmonary nodules. New somewhat ill-defined ground-glass infiltrates in both upper and lower lobes. This could represent atypical/Covid19 pneumonia Patient also underwent imaging of the abdomen FINDINGS: Liver margin is somewhat irregular. Coarse calcification noted in the liver posteriorly. There are few small hypodense hepatic lesions consistent with metastatic disease with at least 3 new lesions apparent. The spleen and adrenal glands are unremarkable. Bilateral renal cortical scarring right more extensive than left with bilateral renal cysts. No hydronephrosis. There is extensive metastatic disease within the mesenteries and retroperitoneum. There is a large complex cystic pelvic mass with thickened ang and septations measuring up to 15 cm transverse, 17 cm cephalad caudad, and 13 cm AP. The mass may be slightly larger. The mass is splaying the sigmoid colon left laterally. Transverse mesocolon metastasis noted. A mass involves the stomach at the antrum measuring 6 x 4.5 cm previously 5.7 x 4 cm. A right-sided retroperitoneal mass at the level the renal vein measures 4.8 x 3.5 cm previously 4 by 2.8 cm. Periportal mass noted measuring 4.6 by 3.4 cm slightly larger. Numerous small peritoneal and transverse omental masses slightly larger. There is increased soft tissue density in the region of the cervix/vaginal region which could be due to neoplasm. Sclerotic focus is present in the left ilium medially and may represent a bone island IMPRESSION: 1. Hepatic metastasis slightly progressed. 2. Large complex cystic pelvic mass consistent with ovarian carcinoma. 3. Ext
== END 2021-09-20 14:58 | disposition hospice, home (50) ==
LOC: ER 17:37 → 2ND 17:49
PROVIDERS: Admitting Provider Family Medicine; Emergency Provider Emergency Medicine; PCP Nurse Practitioner Family; Visit Provider Family Medicine
DX: I48.91 Unspecified atrial fibrillation (principal); C56.1 Malignant neoplasm of right ovary; I10 Essential (primary) hypertension; E78.5 Hyperlipidemia, unspecified; Z79.899 Other long term (current) drug therapy; R06.9 Unspecified abnormalities of breathing; C79.89 Secondary malignant neoplasm of other specified sites; Z20.822 Contact with and (suspected) exposure to COVID-19
CPT/HCPCS: G0378; 36415; 71045; 71275; 74177; 80053; 83690; 83880; 84436; 84443; 84479; 84484; 85025; 93005; 93306; 96365; 96375; 96376; 99284; C9803; Q9967; U0003; U0005